=== PATIENT | female | born 1955 | race Caucasian/White ===

== ENCOUNTER → 2017-01-06 | Outpatient (CLI) | payer OTHER ==
[~2017-01-06] MED LIST: ASP81TEC PO; ESTR0.5T PO; FAMO-119 PO; HYDR-3812 PO; HYOS0.1283 SL; MTF500T PO; ONDA8TAB13 PO; TRIA1TAB2 PO
--- NOTE | 2017-01-06 16:42 | Diagnostic Imaging Report ---
INDICATION: Left foot pain. COMPARISON: None. FINDINGS: Three views of the left foot demonstrate no acute fracture or dislocation. There are no focal osseous lesions. There is no soft tissue swelling. Joint spaces are well maintained. No radiopaque foreign bodies are seen. IMPRESSION: No acute fractures or dislocations of the left foot. Dictated by: Dictated on workstation # [id number]
== END ==
LOC: RAD 16:11
PROVIDERS: ATTEND Nurse Practitioner
DX: M25.572 Pain in left ankle and joints of left foot (principal)
CPT/HCPCS: 73630

== ENCOUNTER 2017-03-04 21:20 | Emergency (ER) | payer OTHER ==
[~2017-03-04] VITALS: Ht 167.6 cm; Wt 64.4 kg
[~2017-03-04 21:20] MED LIST changes: -FAMO-119 PO; -HYDR-3812 PO; -HYOS0.1283 SL; -ONDA8TAB13 PO
[2017-03-04] MEDS ORDERED: NS IV 1000 ML 1,000 ML IV ONE (22:12)
[2017-03-04 22:13] LABS: BASOPHILS % (AUTO) 0 % (0-10); EOSINOPHILS # (AUTO) 0.1 10^3/uL (0.0-0.3); EOSINOPHILS % (AUTO) 1 % (0-10); LYMPHOCYTES # (AUTO) 0.9 X 10^3 (1.0-4.0); LYMPHOCYTES % (AUTO) 9 % (12-44); MEAN CORPUSCULAR HEMOGLOBIN 29 PG (25-34); MEAN CORPUSCULAR HGB CONC 36 G/DL (32-36); MEAN CORPUSCULAR VOLUME 80 FL (80-99); MEAN PLATELET VOLUME 10.9 FL (7.4-10.4); MONOCYTES # (AUTO) 0.7 X 10^3 (0.0-1.0); MONOCYTES % (AUTO) 7 % (0-12); NEUTROPHILS # (AUTO) 8.3 X 10^3 (1.8-7.8); NEUTROPHILS % (AUTO) 83 % (42-75); PLATELET COUNT 305 10^3/uL (130-400); RED BLOOD COUNT 4.28 10^6/uL (4.35-5.85); WHITE BLOOD COUNT 10.1 10^3/uL (4.3-11.0)
[2017-03-04] MEDS ORDERED: ONDANSETRON 4 MG/2 ML (SDV) Z0FRAN IVP ONE (22:15)
[2017-03-04] MEDS ORDERED: IOHEXOL 350 MG/ML 100 ML (OMNIPAQUE 350) VIAL IV ONE (22:15)
[2017-03-04] MEDS ORDERED: NS 100 ML (IVPB) BAG IV ONE (22:15)
--- NOTE | 2017-03-04 22:20 | ED Abdominal Pain ---
General Chief Complaint: Abdominal/GI Problems Stated Complaint: N/V;FEVER Nursing Triage Note: PT TO ED W/ C/O N/V, ABD PAIN ONSET X4 DAYS. REPORTS WAS SEEN BY AMADO POTTS W/ DR DAVIS BUT DENIES IMPROVEMENT. NO OTHER C/O VOICED Sepsis Screen: No Definite Risk Source of Information: Patient, Spouse Exam Limitations: No Limitations History of Present Illness Time Seen By Provider: 22:06 Initial Comments 62 yo female patient presents to the ED with c/o N/V and epigastric abdominal pain x4days. Patient was seen by Amado Potts APRN this week. Denies improvement in symptoms. Pain now radiates to the RUQ. fever of 101 degrees F at home. Timing/Duration: 3-4 Days, Getting Worse Severity/Quality: Aching, Stabbing Location: Epigastric Radiation: RUQ Activities at Onset: None Modifying Factors: Worsens With Eating, Worsens With Palpation Allergies and Home Medications Allergies Coded Allergies: No Known Drug Allergies (Unverified , 01/03/13) Home Medications Aspirin 81 Mg Tabec, 81 MG PO DAILY, (Reported) Estradiol 0.5 Mg Tablet, 0.625 MG PO EVERY OTHER DAY, (Reported) Metformin Hcl 500 Mg Tablet, 1 EACH PO DAILY, (Reported) Triamterene/Hctz 37.5 Mg/25 Mg Tab, 37.5 MG PO DAILY, (Reported) Review of Systems Constitutional: chills, fever EENTM: No Symptoms Reported Respiratory: Denies Cough, Denies Shortness of Air Cardiovascular: Denies Chest Pain, Denies Lightheadedness, Denies Palpitations Gastrointestinal: Denies Abdomen Distended, Abdominal Pain, Denies Blood Streaked Stools, Denies Constipated, Denies Diarrhea, Nausea, Poor Appetite, Poor Fluid Intake, Denies Rectal Bleeding, Vomiting Genitourinary: Denies Burning, Denies Frequency, Denies Flank Pain Musculoskeletal: no symptoms reported Skin: no symptoms reported Psychiatric/Neurological: No Symptoms Reported All Other Systems Reviewed Negative Unless Noted: Yes (Negative excepted noted.) Past Jtbrqso-Rgknlc-Cpqzsk Hx Patient Social History Alcohol Use: Denies Use Recreational Drug Use: No Smoking Status: Never a Smoker Recent Foreign Travel: No Contact w/Someone Who Travel: No Recent Infectious Disease Expo: No Recent Hopitalizations: No Physical Abuse: No Sexual Abuse: No Mistreated: No Fear: No Surgeries History of Surgeries: Yes Surgeries: Hysterectomy Respiratory History of Respiratory Disorde: No Cardiovascular History of Cardiac Disorders: Yes Cardiac Disorders: High Cholesterol, Hypertension Neurological History of Neurological Disord: No Genitourinary History of Genitourinary Disor: No Gastrointestinal History of Gastrointestinal Di: No Musculoskeletal History of Musculoskeletal Dis: No Endocrine History of Endocrine Disorders: Yes Psychosocial Suicide Risk Score: 0 Integumentary History of Skin or Integumenta: No Reviewed Nursing Assessment Reviewed/Agree w Nursing PMH: Yes Family Medical History Significant Family History: No Pertinent Family Hx Physical Exam Vital Signs VS - Last 72 Hours, by Label 03/04/17 21:39 Temp 97.2 Pulse 110 Resp 20 B/P (MAP) 147/90 Pulse Ox 95 O2 Delivery Room Air Capillary Refill : Less Than 3 Seconds General Appearance: WD/WN, no apparent distress HEENT: PERRL/EOMI, pharynx normal Neck: supple, normal inspection Respiratory: lungs clear, normal breath sounds, no respiratory distress, no accessory muscle use Cardiovascular: normal peripheral pulses, no edema, no murmur, tachycardia Peripheral Pulses: 2+ Dorsalis Pedis (R), 2+ Left Dors-Pedis (L), 2+ Radial Pulses (R), 2+ Radial Pulses (L) Gastrointestinal: normal bowel sounds, soft, no organomegaly, No distended, guarding (RUQ), No rebound, tenderness (epigastric and RUQ), other ((+) atkinson' s sign) Extremities: no pedal edema, normal capillary refill Back: normal inspection, no CVA tenderness Neurologic/Psychiatric: alert, normal mood/affect, oriented x 3 Skin: normal color, warm/dry Progress/Results/Core Measures Results/Orders Lab Results Laboratory Tests Test 03/04/17 21:51 03/04/17 22:11 Range/Units White Blood Count 10.1 4.3-11.0 10^3/uL Red Blood Count 4.28 L 4.35-5.85 10^6/uL Hemoglobin 12.3 11.5-16.0 G/DL Hematocrit 34 L 35-52 % Mean Corpuscular Volume 80 80-99 FL Mean Corpuscular Hemoglobin 29 25-34 PG Mean Corpuscular Hemoglobin Concent 36 32-36 G/DL Red Cell Distribution Width 13.0 10.0-14.5 % Platelet Count 305 130-400 10^3/uL Mean Platelet Volume 10.9 H 7.4-10.4 FL Neutrophils (%) (Auto) 83 H 42-75 % Lymphocytes (%) (Auto) 9 L 12-44 % Monocytes (%) (Auto) 7 0-12 % Eosinophils (%) (Auto) 1 0-10 % Basophils (%) (Auto) 0 0-10 % Neutrophils # (Auto) 8.3 H 1.8-7.8 X 10^3 Lymphocytes # (Auto) 0.9 L 1.0-4.0 X 10^3 Monocytes # (Auto) 0.7 0.0-1.0 X 10^3 Eosinophils # (Auto) 0.1 0.0-0.3 10^3/uL Basophils # (Auto) 0.0 0.0-0.1 10^3/uL Sodium Level 130 L 135-145 MMOL/L Potassium Level 3.2 L 3.6-5.0 MMOL/L Chloride Level 92 L 98-107 MMOL/L Carbon Dioxide Level 24 21-32 MMOL/L Anion Gap 14 5-14 MMOL/L Blood Urea Nitrogen 13 7-18 MG/DL Creatinine 1.04 0.60-1.30 MG/DL Estimat Glomerular Filtration Rate 54 BUN/Creatinine Ratio 13 Glucose Level 191 H 70-105 MG/DL Calcium Level 9.4 8.5-10.1 MG/DL Total Bilirubin 0.8 0.1-1.0 MG/DL Aspartate Amino Transf (AST/SGOT) 82 H 5-34 U/L Alanine Aminotransferase (ALT/SGPT) 24 0-55 U/L Alkaline Phosphatase 85 40-136 U/L Total Protein 7.2 6.4-8.2 GM/DL Albumin 4.4 3.2-4.5 GM/DL Lipase 22 8-78 U/L Urine Color YELLOW Urine Clarity SLIGHTLY CLOUDY Urine pH 6 5-9 Urine Specific [place] 1.015 L 1.016-1.022 Urine Protein 1+ H NEGATIVE Urine Glucose (UA) NEGATIVE NEGATIVE Urine Ketones NEGATIVE NEGATIVE Urine Nitrite NEGATIVE NEGATIVE Urine Bilirubin NEGATIVE NEGATIVE Urine Urobilinogen NORMAL NORMAL MG/DL Urine Leukocyte Esterase 1+ H NEGATIVE Urine RBC (Auto) 1+ H NEGATIVE Urine RBC RARE /HPF Urine WBC 0-2 /HPF Urine Crystals NONE /LPF Urine Bacteria NEGATIVE /HPF Urine Casts NONE /LPF Urine Mucus NEGATIVE /LPF Urine Culture Indicated NO My Orders Orders - GIOVANNI HAYWOOD Cbc With Automated Diff (03/04/17 22:03) Comprehensive Metabolic Panel (03/04/17 22:03) Lipase (03/04/17 22:03) Ua Culture If Indicated (03/04/17 22:03) Saline Lock/Iv-Start (03/04/17 22:03) Ct Abdomen/Pelvis W (03/04/17 22:12) Ondansetron Injection (Zofran Injectio (03/04/17 22:15) Ns Iv 1000 Ml (Sodium Chloride 0.9%) (03/04/17 22:12) Iohexol Injection (Omnipaque 350 Mg/Ml 1 (03/04/17 22:15) Ns (Ivpb) (Sodium Chloride 0.9% Ivpb Bag (03/04/17 22:15) Pharmacy Communication (Pharmacy Communi (03/04/17 22:15) Medications Given in ED Current Medications Medications Dose Ordered Sig/Eric Route Start Time Stop Time Status Last Admin Dose Admin Iohexol 100 ml ONCE ONCE IV 03/04/17 22:15 03/04/17 22:16 DC 03/04/17 22:38 75 ML Ondansetron HCl 4 mg ONCE ONCE IVP 03/04/17 22:15 03/04/17 22:16 DC 03/04/17 22:21 4 MG Sodium Chloride 100 ml ONCE ONCE IV 03/04/17 22:15 03/04/17 22:16 DC 03/04/17 22:38 80 ML Sodium Chloride 1,000 ml @ 0 mls/hr Q0M ONCE IV 03/04/17 22:12 03/04/17 22:13 DC 03/04/17 22:20 1,000 MLS/HR Vital Signs/I&O Vital Sign - Last 12Hours 03/04/17 21:39 Temp 97.2 Pulse 110 Resp 20 B/P (MAP) 147/90 Pulse Ox 95 O2 Delivery Room Air Blood Pressure Mean: 109 Diagnostic Imaging Diagonstic Imaging: CT Plain Films/CT/US/NM/MRI: abdomen, pelvis Reviewed: Other (statrad report reviewed by me) Departure Impression Impression: Primary Impression: Upper abdominal pain Additional Impressions: Nausea & vomiting incidental duodenal diverticulum Disposition: HOME, SELF-CARE Condition: Improved Departure-Patient Inst. Decision time for Depature: 00:38 Referrals: OMAIRA DAVIS MD (PCP/Family) Primary Care Physician Patient Instructions: Acute Abdomen (Belly Pain), Adult (DC), GASTROENTERITIS- 6Y-ADULT Add. Discharge Instructions: All discharge instructions reviewed with patient and/or family. Voiced understanding. Medications as instructed. Drink plenty of fluids. Avoid NSAIDs, May beverages, carbonated beverages, spicy foods, fatty foods. Clear liquid diet until symptoms improve, then increase diet slowly to a low-fat, bland diet. Follow-up with Dr. Davis's office tomorrow or Wednesday for a recheck and possible need for outpatient HIDA scan. Call tomorrow morning for appointment time. Return to the emergency department for worsened pain, fever, vomiting, vomiting blood, abdominal swelling, diarrhea, rectal bleeding, black tarry stools, inability to urinate, or any other concerns. Scripts Famotidine (Pepcid) 20 Mg Tablet 20 MG PO BID, #30 TAB 0 Refills Prov: GIOVANNI HAYWOOD 03/05/17 Hydrocodone/Acetaminophen (Hydrocodon -Acetaminophen 5-325) 1 Each Tablet 1 EACH PO Q4H Y for PAIN, #14 TAB 0 Refills Prov: GIOVANNI HAYWOOD 03/05/17 Ondansetron (Ondansetron Odt) 8 Mg Tab.rapdis 8 MG PO Q6H Y for NAUSEA/VOMITING-1ST LINE, #10 TAB 0 Refills Prov: GIOVANNI HAYWOOD 03/05/17 Hyoscyamine Sulfate (Levsin-Sl) 0.125 Mg Tab.subl 0.125 MG SL Q6H Y for SPASMS, #14 TAB 0 Refills Prov: GIOVANNI HAYWOOD 03/05/17 Work/School Note: Work Release Form Date Seen in the Emergency Department: Mar 05, 2017 Return to Work: Mar 07, 2017 GIOVANNI HAYWOOD Mar 04, 2017 22:20
[2017-03-04 22:22] LABS: BILIRUBIN,URINE NEGATIVE (NEGATIVE); KETONES,URINE NEGATIVE (NEGATIVE); LEUKOCYTE ESTERASE ,URINE 1+ (NEGATIVE); NITRITE,URINE NEGATIVE (NEGATIVE); PH,URINE 6 (5-9); PROTEIN,URINE 1+ (NEGATIVE); UROBILINOGEN,URINE NORMAL (NORMAL)
[2017-03-04 22:26] LABS: ALBUMIN 4.4 GM/DL (3.2-4.5); BILIRUBIN,TOTAL 0.8 MG/DL (0.1-1.0); CALCIUM 9.4 MG/DL (8.5-10.1); CREATININE SERUM 1.04 MG/DL (0.60-1.30); POTASSIUM 3.2 MMOL/L (3.6-5.0); TOTAL PROTEIN 7.2 GM/DL (6.4-8.2)
[2017-03-04 22:38] LABS: WBC,URINE 0-2 /HPF
[2017-03-05] MEDS ORDERED: RX-HYOSCYAMINE 0.125 MG SL (LEVSIN) PPK#6 SL STA (00:37)
[2017-03-05] MEDS ORDERED: RX-ONDANSETRON 4 MG ODT (ZOFRAN) PPK #4 PO STA (00:37)
[2017-03-05] MEDS ORDERED: FAMO-119 PO (00:43)
[2017-03-05] MEDS ORDERED: HYDR-3812 PO (00:43)
[2017-03-05] MEDS ORDERED: HYOS0.1283 SL (00:43)
[2017-03-05] MEDS ORDERED: ONDA8TAB13 PO (00:43)
[2017-03-05] MEDS ORDERED: RX-HYDROCODONE/APAP 5/325 MG #4 TAB PK PO PRN (00:45)
[2017-03-05 01:11] VITALS: BP 125/87
--- NOTE | 2017-03-05 07:10 | Diagnostic Imaging Report ---
PROCEDURE: CT abdomen and pelvis with contrast. TECHNIQUE: Multiple contiguous axial images were obtained through the abdomen and pelvis after administration of intravenous contrast. INDICATION: Epigastric pain with nausea and vomiting. COMPARISON: None available. FINDINGS: Lower chest: The lung bases are clear. No pericardial or pleural effusion. Peritoneum: No free intraperitoneal air or fluid. Liver and biliary system: Liver has diffuse hypoattenuation suggestive of hepatic steatosis. The gallbladder is normal. No biliary duct dilation. Spleen and Pancreas: Spleen is normal. The pancreas enhances normally without mass lesion or peripancreatic inflammatory changes. Adrenals: Normal. tract: The kidneys enhance normally without suspicious mass or obstruction. Urinary bladder is distended without wall thickening. Single punctate focus of air within the urinary bladder is compatible with recent catheterization. Status post hysterectomy. No adnexal mass. GI tract: Stomach is partially distended with fluid and there is no abnormal wall thickening. No bowel obstruction. No pericolonic inflammatory changes. Sigmoid colon diverticulosis without diverticulitis. Normal appendix. Vasculature and Lymph nodes: Normal caliber aorta with moderate atherosclerotic plaquing. No abdominal or pelvic lymphadenopathy. Musculoskeletal: No concerning osseous lesion. IMPRESSION: 1. No acute inflammatory obstructive process within the abdomen. 2. Underdistention of the transverse colon accounts for apparent wall thickening. 3. Findings are in general agreement with the preliminary report. Dictated by: Dictated on workstation # [id number]
== END 2017-03-05 01:11 | disposition home or self-care (01) ==
LOC: EDUNIT# 21:20 → ER 21:21
DX: K57.10 Diverticulosis of small intestine without perforation or abscess without bleeding (principal); E78.00 Pure hypercholesterolemia, unspecified; I10 Essential (primary) hypertension; Z79.82 Long term (current) use of aspirin; Z90.710 Acquired absence of both cervix and uterus
CPT/HCPCS: 36415; 74177; 80053; 81000; 83690; 85025; 96361; 96374

== ENCOUNTER → 2017-04-20 | Outpatient (CLI) | payer OTHER ==
[~2017-04-20] MED LIST changes: +FAMO-119 PO; +HYDR-3812 PO; +HYOS0.1283 SL; +ONDA8TAB13 PO
--- NOTE | 2017-04-22 16:41 | Diagnostic Imaging Report ---
Bilateral screening mammogram 2D views with tomosynthesis. The current study was also evaluated with a Computer Aided Detection (CAD) system. INDICATION: Screening. No current complaints stated on the questionnaire. COMPARISON: 03/24/2016. FINDINGS: The breasts are composed of heterogeneously dense parenchyma which may decrease mammographic sensitivity. Scattered benign-appearing calcifications are seen. Allowing for technique and positional differences, no suspicious change is seen. IMPRESSION: No significant change. ACR BI-RADS Category 2: Benign findings. Result letter will be mailed to the patient. Note: At least 10% of breast cancer is not imaged by mammography. Dictated by: Dictated on workstation # [id number]
== END ==
LOC: RAD 14:43
PROVIDERS: ATTEND Internal Medicine
DX: Z12.31 Encounter for screening mammogram for malignant neoplasm of breast (principal)
CPT/HCPCS: 77067

== ENCOUNTER 2018-01-18 06:17 | Outpatient (CLI) | payer OTHER ==
[~2018-01-18] VITALS: Ht 167.6 cm; Wt 64.4 kg
[~2018-01-18 06:17] MED LIST changes: +ACHD5005 PO; -HYDR-3812 PO
[2018-01-18] MEDS ORDERED: ROSU10TA PO (14:38)
[2018-01-18] MEDS ORDERED: TRIA1CAP4 PO (14:38)
[2018-01-18] MEDS ORDERED: ASPI-999 PO (14:38)
[2018-01-18] MEDS ORDERED: METF-397 PO (14:38)
[2018-01-18] MEDS ORDERED: COLE625T9 PO (14:38)
== END 2018-01-18 14:43 | disposition home or self-care (01) ==
LOC: PREOP 06:17
PROVIDERS: ATTEND Internal Medicine
DX: Z01.818 Encounter for other preprocedural examination (principal)

== ENCOUNTER 2018-01-21 07:14 | Day surgery (SDC) | payer OTHER ==
--- NOTE | 2018-01-20 10:06 | HISTORY AND PHYSICAL ---
DATE OF SERVICE: COLONOSCOPY HISTORY AND PHYSICAL HISTORY OF PRESENT ILLNESS: The patient is a 63-year-old white female referred by Dr. Duron for screening colonoscopy. She is deemed to be of higher than average risk as her father was diagnosed with colon cancer at the age of 57. Her last colonoscopy was 5 years ago, at which time no evidence for neoplasia was identified. On her colonoscopy, roughly 10 years ago, she did have evidence for one diminutive polyp removed from the sigmoid colon with no evidence for dysplasia. The patient reports that she feels well and there have been no changes in her health history over the past 5 years. PAST MEDICAL HISTORY: Significant for type 2 diabetes mellitus, hypertension and hyperlipidemia with no known history of vascular disease. MEDICATIONS ON ADMISSION: Include metformin 500 mg b.i.d., Maxzide 25/37.5 one daily, 81 mg aspirin daily, Welchol 625 mg tabs 3 b.i.d., and Crestor 5 mg daily. PAST SURGICAL HISTORY: Significant for tonsillectomy and hysterectomy. She had cardiac catheterization in 2007 that was reportedly unremarkable. FAMILY HISTORY: Most significant for diagnosis with colon cancer in her father at the age of 57. She is not aware of any other family history for colon cancer or polyps. PHYSICAL EXAMINATION: GENERAL: Reveals a well-appearing white female in no acute distress. VITAL SIGNS: Weight 146.2 pounds, is down 6 pounds from 5 years ago. Blood pressure 134/70 with a heart rate of 72 and regular. HEENT: Unremarkable. Sclerae nonicteric. Mallampati class 2 oropharyngeal configuration. NECK: Revealed no JVD, adenopathy or bruits. CHEST: Clear to auscultation. CARDIOVASCULAR: Reveals regular rate and rhythm without murmur, S3 or S4. ABDOMEN: Soft. Supple without mass, organomegaly or tenderness. No bruits noted. EXTREMITIES: Reveal no cyanosis, clubbing or edema. ASSESSMENT AND PLAN: The patient is set up for screening colonoscopy on 01/21/2018. Prep instructions with the Suprep kit were given and questions were answered. She is deemed to be of higher than average risk considering that her father was diagnosed with colon cancer at the age of 57. Job ID: [id number] DocumentID: [id number] Dictated Date: 01/13/2018 15:54:31 Battery Tester Date: 01/13/2018 16:24:28 Dictated By: BARBARA BRITTON MD
[~2018-01-21] VITALS: Ht 167.6 cm; Wt 64.4 kg
[~2018-01-21 07:14] MED LIST changes: +ASPI-999 PO; +COLE625T9 PO; +METF-397 PO; +ROSU10TA PO; +TRIA1CAP4 PO
--- OUTSIDE RECORDS SUMMARY | 2018-01-21 07:18 | XMS REPORT | Continuity of Care Document ---
Author Author [facility] Organization [facility] Address Unknown Phone Unavailable Allergies Active Description Code Type Severity Reaction Onset Reported/Identified Relationship to Patient Clinical Status Yes No Known Drug Allergies [id number] Drug Allergy Unknown N/A 01/03/2013 Medications There is no data. Problems Date Dx Coded Attending Type Code Diagnosis Diagnosed By 01/03/2013 REBA NOLEN, BARBARA Gomez Ot 211.1 BENIGN NEOPLASM STOMACH 01/03/2013 BARBARA BRITTON MD Ot V16.0 FAMILY HX-GI MALIGNANCY 01/03/2013 REBA NOLEN, BARBARA Gomez Ot V76.51 SCREEN MAL NEOP-COLON 03/18/2014 STEFFANY NOLEN, ROCKY Gupta Ot 250.02 DIAB EMILIA WO COMPL, TYPE II OR UNSPEC TY 03/18/2014 ROCKY JETER MD Ot 401.9 HYPERTENSION NOS 08/29/2014 ROCKY JETER MD Ot 250.00 08/29/2014 ROCKY JETER MD Ot 272.4 09/13/2014 ROCKY JETER MD Ot 793.82 09/13/2014 ROCKY JETER MD Ot V76.12 09/13/2014 ROCKY JETER MD Ot 250.00 09/13/2014 ROCKY JETER MD Ot 272.4 03/24/2016 Ot 250.00 DIAB EMILIA WO COMPL, TYPE II OR UNSPEC TY 03/24/2016 Ot 272.4 HYPERLIPIDEMIA NEC/NOS 03/24/2016 Ot 401.1 BENIGN HYPERTENSION 03/24/2016 Ot V76.12 OTH SCREEN MAMMO-MALIGN NEOPLASM OF JUANITA 03/24/2016 Ot 250.00 DIAB EMILIA WO COMPL, TYPE II OR UNSPEC TY 03/24/2016 Ot 272.4 HYPERLIPIDEMIA NEC/NOS 03/24/2016 Ot 790.6 ABN BLOOD CHEMISTRY NEC 03/24/2016 Ot V76.12 OTH SCREEN MAMMO-MALIGN NEOPLASM OF JUANITA 03/24/2016 Ot 793.80 UNSPEC ABNORMAL MAMMOGRAM 03/24/2016 Ot 790.6 ABN BLOOD CHEMISTRY NEC 03/24/2016 REBA NOLEN, BARBARA Gomez Ot V72.84 EXAM PRE-OPERATIVE NOS 03/24/2016 ROCKY JETER MD Ot V76.12 OTH SCREEN MAMMO-MALIGN NEOPLASM OF JUANITA 03/24/2016 ROCKY JETER MD Ot 250.00 DIAB EMILIA WO COMPL, TYPE II OR UNSPEC TY 03/24/2016 ROCKY JETER MD M Ot 401.1 BENIGN HYPERTENSION 03/24/2016 ROCKY JETER MD M Ot 250.00 DIAB EMILIA WO COMPL, TYPE II OR UNSPEC TY 03/24/2016 ROCKY JETER MD Ot 401.1 BENIGN HYPERTENSION 03/24/2016 Ot 250.02 DIAB EMILIA WO COMPL, TYPE II OR UNSPEC TY 03/24/2016 Ot 401.9 HYPERTENSION NOS 03/24/2016 ROCKY JETER MD Ot 793.82 INCONCLUSIVE MAMMOGRAM 03/24/2016 ROCKY JETER MD Ot V76.12 OTH SCREEN MAMMO-MALIGN NEOPLASM OF JUANITA 03/24/2016 ROCKY JETER MD Ot 250.00 DIAB EMILIA WO COMPL, TYPE II OR UNSPEC TY 03/24/2016 ROCKY JETER MD Ot 272.4 HYPERLIPIDEMIA NEC/NOS 03/25/2016 RYAN NOLEN, OMAIRA Gomez Ot Z12.31 ENCNTR SCREEN MAMMOGRAM FOR MALIGNANT NE 03/05/2017 GIOVANNI CHIRINOS Ot E78.00 PURE HYPERCHOLESTEROLEMIA, UNSPECIFIED 03/05/2017 GIOVANNI CHIRINOS Ot I10 ESSENTIAL (PRIMARY) HYPERTENSION 03/05/2017 GIOVANNI CHIRINOS Ot 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 Results Test Result Range Complete blood count (CBC) with automated white blood cell (WBC) differential - 03/04/17 21:51 Blood leukocytes automated count (number/volume) 10.1 10*3/uL 4.3-11.0 Blood erythrocytes automated count (number/volume) 4.28 10*6/uL 4.35-5.85 Venous blood hemoglobin measurement (mass/volume) 12.3 g/dL 11.5-16.0 Blood hematocrit (volume fraction) 34 % 35-52 Automated erythrocyte mean corpuscular volume 80 [foz_us] 80-99 Automated erythrocyte mean corpuscular hemoglobin (mass per erythrocyte) 29 pg 25-34 Automated erythrocyte mean corpuscular hemoglobin concentration measurement ( mass/volume) 36 g/dL 32-36 Automated erythrocyte distribution width ratio 13.0 % 10.0-14.5 Automated blood platelet count (count/volume) 305 10*3/uL 130-400 Automated blood platelet mean volume measurement 10.9 [foz_us] 7.4-10.4 Automated blood neutrophils/100 leukocytes 83 % 42-75 Automated blood lymphocytes/100 leukocytes 9 % 12-44 Blood monocytes/100 leukocytes 7 % 0-12 Automated blood eosinophils/100 leukocytes 1 % 0-10 Automated blood basophils/100 leukocytes 0 % 0-10 Blood neutrophils automated count (number/volume) 8.3 10*3 1.8-7.8 Blood lymphocytes automated count (number/volume) 0.9 10*3 1.0-4.0 Blood monocytes automated count (number/volume) 0.7 10*3 0.0-1.0 Automated eosinophil count 0.1 10*3/uL 0.0-0.3 Automated blood basophil count (count/volume) 0.0 10*3/uL 0.0-0.1 Comprehensive metabolic panel - 03/04/17 21:51 Serum or plasma sodium measurement (moles/volume) 130 mmol/L 135-145 Serum or plasma potassium measurement (moles/volume) 3.2 mmol/L 3.6-5.0 Serum or plasma chloride measurement (moles/volume) 92 mmol/L 98-107 Carbon dioxide 24 mmol/L 21-32 Serum or plasma anion gap determination (moles/volume) 14 mmol/L 5-14 Serum or plasma urea nitrogen measurement (mass/volume) 13 mg/dL 7-18 Serum or plasma creatinine measurement (mass/volume) 1.04 mg/dL 0.60-1.30 Serum or plasma urea nitrogen/creatinine mass ratio 13 NRG Serum or plasma creatinine measurement with calculation of estimated glomerular filtration rate 54 NRG Serum or plasma glucose measurement (mass/volume) 191 mg/dL 70-105 Serum or plasma calcium measurement (mass/volume) 9.4 mg/dL 8.5-10.1 Serum or plasma total bilirubin measurement (mass/volume) 0.8 mg/dL 0.1-1.0 Serum or plasma alkaline phosphatase measurement (enzymatic activity/volume) 85 U/L 40-136 Serum or plasma aspartate aminotransferase measurement (enzymatic activity/ volume) 82 U/L 5-34 Serum or plasma alanine aminotransferase measurement (enzymatic activity/volume ) 24 U/L 0-55 Serum or plasma protein measurement (mass/volume) 7.2 g/dL 6.4-8.2 Serum or plasma albumin measurement (mass/volume) 4.4 g/dL 3.2-4.5 Lipase - 03/04/17 21:51 Lipase 22 U/L 8-78 Complete urinalysis with reflex to culture - 03/04/17 22:11 Urine color determination YELLOW NRG Urine clarity determination SLIGHTLY CLOUDY NRG Urine pH measurement by test strip 6 5-9 Specific gravity of urine by test strip 1.015 1.016- 1.022 Urine protein assay by test strip, semi-quantitative 1+ NEGATIVE Urine glucose detection by automated test strip NEGATIVE NEGATIVE Erythrocytes detection in urine sediment by light microscopy 1+ NEGATIVE Urine ketones detection by automated test strip NEGATIVE NEGATIVE Urine nitrite detection by test strip NEGATIVE NEGATIVE Urine total bilirubin detection by test strip NEGATIVE NEGATIVE Urine urobilinogen measurement by automated test strip (mass/volume) NORMAL NORMAL Urine leukocyte esterase detection by dipstick 1+ NEGATIVE Automated urine sediment erythrocyte count by microscopy (number/high power field) RARE NRG Automated urine sediment leukocyte count by microscopy (number/high power field ) [HPF] NRG Bacteria detection in urine sediment by light microscopy NEGATIVE NRG Crystals detection in urine sediment by light microscopy NONE NRG Casts detection in urine sediment by light microscopy NONE NRG Mucus detection in urine sediment by light microscopy NEGATIVE NRG Complete urinalysis with reflex to culture NO NRG Encounters ACCT No. Visit Date/Time Discharge Status Pt. Type Provider Facility Loc./Unit Complaint [id number] 04/20/2017 14:43:00 04/20/2017 23:59:59 CLS Outpatient OMAIRA DAVIS MD [facility] RAD SCREENING [id number] 03/04/2017 21:21:00 03/05/2017 01:11:00 DIS Emergency GIOVANNI CHIRINOS [facility] ER N/V;FEVER [id number] 01/06/2017 16:11:00 01/06/2017 23:59:59 CLS Outpatient IRENA POTTS APRN [facility] RAD LT FOOT PAIN [id number] 03/24/2016 12:47:00 03/24/2016 23:59:59 CLS Outpatient OMAIRA DAVIS MD [facility] RAD SCREENING [id number] 08/25/2014 07:02:00 08/25/2014 23:59:59 CLS Outpatient ROCKY JETER MD [facility] LAB HYPERLIPIDEMIA, DIABETES [id number] 08/23/2014 12:48:00 08/23/2014 23:59:59 CLS Outpatient ROCKY JETER MD [facility] RAD SCREENING [id number] 02/19/2014 18:00:00 03/18/2014 00:01:00 DIS Outpatient ROCKY JETER MD [facility] DSME TYPE II DIABETES [id number] 11/24/2013 06:47:00 11/24/2013 23:59:59 CLS Outpatient ROCKY JETER MD [facility] LAB DM,HTN [id number] 07/25/2013 07:21:00 07/25/2013 23:59:59 CLS Outpatient ROCKY JETER MD [facility] LAB DIABETES [id number] 05/04/2013 09:34:00 05/04/2013 23:59:59 CLS Outpatient ROCKY JETER MD [facility] RAD SCREENING [id number] 01/03/2013 06:59:00 01/03/2013 10:00:00 DIS Outpatient BARBARA BRITTON MD [facility] SDC FAMILY HX COLON CA/ SCREENING [id number] 12/29/2012 07:16:00 12/29/2012 23:59:59 CLS Outpatient BARBARA BRITTON MD [facility] PREOP SCREENING/FAMILY HISTORY [id number] 10/24/2012 07:41:00 10/24/2012 23:59:59 CLS Outpatient [id number] 01/21/2018 07:14:00 ACT Outpatient BARBARA BRITTON MD [facility] ENDO SCREENING/F/H COLON CANCER [id number] 01/18/2018 06:17:00 Document Registration [id number] 03/19/2014 13:00:00 Document Registration [id number] 06/06/2012 10:57:00 Document Registration [id number] 05/05/2012 15:04:00 Document Registration [id number] 04/29/2012 07:44:00 Document Registration [id number] 01/18/2012 10:30:00 Document Registration [id number] 01/15/2012 07:59:00 Document Registration [id number] 04/14/2011 07:33:00 Document Registration [id number] 01/15/2011 08:05:00 Document Registration
[2018-01-21] MEDS ORDERED: D5 LR IV SOLUTION 1,000 ML IV ONE (07:21)
[2018-01-21] MEDS ORDERED: MIDAZOLAM 2 MG/2 ML (VERSED) VIAL IVP ONE (08:00)
[2018-01-21] MEDS ORDERED: LIDOCAINE JELLY 2% (XYLOCAINE) 5 ML TUBE MM PRN (08:00)
[2018-01-21] MEDS ORDERED: D5 LR IV SOLUTION 1,000 ML IV STA (08:00)
[2018-01-21] MEDS ORDERED: fentaNYL INJECTION 100 MCG/2 ML AMP IVP ONE (08:00)
[2018-01-21 08:03] VITALS: BP 134/94
--- NOTE | 2018-01-21 08:43 | Pre-Op Note & Conscious Sedat ---
Pre-Operative Progress Note H&P Reviewed The H&P was reviewed, patient examined and no changes noted. Date H&P Reviewed: Jan 21, 2018 Time H&P Reviewed: 08:43 Conscious Sedation Pre-Proced ASA Class: 2 Airway Mallampati Classification: ([employer] appropriate class) I. II. III, IV Lungs Heart ASA score ASA 1: a normal healthy patient ASA 2: a patient with a mild systemic disease (mid diabetes, controlled hypertension, obesity ASA 3: a patient with a severe systemic disease that limits activity (angina , COPD, prior Myocardial infarction) ASA 4: a patient with an incapacitating disease that is a constant threat to life (CHF, renal failure) ASA 5: a moribund patient not expected to survive 24 hrs. (ruptured aneurysm) ASA 6: a declared brain patient whose organs are being harvested. For emergent operations, add the letter E after the classification Grade 2 Sedation Plan: Analgesia, Amnesia, Plan communicated to team members, Discussed options with patient/fam, Discussed risks with patient/fam Note The patient is an appropriate candidate to undergo the planned procedure, sedation, and anesthesia. The patient immediately re-assessed prior to indication. BARBARA BRITTON MD Jan 21, 2018 08:43
[2018-01-21] MEDS ORDERED: MIDAZOLAM 2 MG/2 ML (VERSED) VIAL ONE ×2 (08:53)
[2018-01-21] MEDS ORDERED: fentaNYL INJECTION 100 MCG/2 ML AMP ONE ×2 (08:53→09:06)
[2018-01-21] MEDS ORDERED: LIDOCAINE JELLY 2% (XYLOCAINE) 5 ML TUBE ONE (08:53)
[2018-01-21 09:45] VITALS: BP 127/79
[2018-01-21 10:15] VITALS: BP 136/94
[2018-01-21 13:05] VITALS: BP 136/94
--- NOTE | 2018-01-21 14:22 | OPERATIVE REPORT ---
DATE OF SERVICE: INDICATION FOR THE PROCEDURE: Screening colonoscopy. DESCRIPTION OF PROCEDURE: The patient was placed in the left lateral decubitus position. Prior to undergoing colonoscopy, digital rectal evaluation was performed. Anal sphincter tone was normal and the perianal reflexes intact. No abnormalities were noted on digital inspection of the anal canal or distal rectal vault. The colonoscope was then inserted into the rectum under direct visualization and advanced to the cecum. The cecum was identified by identification of ileocecal valve, cecal strap and appendiceal orifice. Photographic documentation was obtained. Careful inspection was made as the colonoscope was withdrawn. Quality of the prep was good. FINDINGS: There was no evidence for internal or external hemorrhoids and the rectum was unremarkable. There is an area of colonic narrowing without any evidence for stricture formation or mucosal abnormality in the mid distal sigmoid colon roughly 25 to 35 cm compatible with likely tethering from extrinsic adhesions. There is no evidence for obstruction, but despite going back and forth several times in different positions, I was unable to open up the colon to get a good view. There is no evidence for blood and nothing to suggest underlying malignancy or any neoplastic or inflammatory process and no surrounding diverticulum, although again visualization was suboptimal. The remainder of the sigmoid colon was unremarkable. Present on the splenic flexure was a diminutive hyperplastic appearing polyp, measuring about 3 mm in size. It was biopsied and ablated and submitted for histopathology after photographic documentation. Present in the mid transverse colon was a sessile 4 mm inflammatory appearing polyp. It was photographed and biopsied and ablated with no subsequent blood loss. The remainder of the transverse colon, hepatic flexure, ascending colon and cecum were unremarkable. ASSESSMENT: Two diminutive polyps were removed today, neither of which may return clerk to be neoplastic in nature, but we will need to await histopathology reporting. The patient does have about a 10 cm area of sigmoid colon roughly 25 to 35 cm from the anal verge that is difficult to visualize likely due to extrinsic adhesions, see above report. For this reason as long as there are no surprises on histopathology report, we will likely be advocating a shorter 2 to 3 year surveillance interval considering family history for relatively early colon cancer in a first degree relative, her father, in his 50s. We will also recommend Diprivan based anesthesia for her next procedure. I thank you for the referral of this pleasant lady. Job ID: [id number] DocumentID: [id number] Dictated Date: 01/21/2018 10:01:47 Steel Rod Buster Date: 01/21/2018 14:21:57 Dictated By: BARBARA BRITTON MD
== END 2018-01-21 10:20 | disposition home or self-care (01) ==
LOC: ENDO 07:14
PROVIDERS: ATTEND Internal Medicine
DX: Z12.11 Encounter for screening for malignant neoplasm of colon (principal); D12.3 Benign neoplasm of transverse colon; K63.5 Polyp of colon; K66.0 Peritoneal adhesions (postprocedural) (postinfection); Z80.0 Family history of malignant neoplasm of digestive organs; E11.9 Type 2 diabetes mellitus without complications; I10 Essential (primary) hypertension; Z79.82 Long term (current) use of aspirin; Z79.84 Long term (current) use of oral hypoglycemic drugs; Z87.19 Personal history of other diseases of the digestive system

== ENCOUNTER → 2018-05-09 | Outpatient (CLI) | payer OTHER ==
--- NOTE | 2018-05-11 10:22 | Diagnostic Imaging Report ---
Digital mammogram. Bilateral screening with 3-D tomosynthesis with CAD. The study was compared to the prior exam of 04/20/2017, 03/24/2016 and 08/23/2014. At this time there are no current complaints. FINDINGS: The fibroglandular tissue in both breasts is heterogeneously dense. This does limit the sensitivity of this exam. Overall, there does not appear to have been any significant change when compared to the prior study. No primary or secondary sign of malignancy is noted. IMPRESSION: There is no radiographic evidence for malignancy. ACR BI-RADS Category 1: Negative. Result letter will be mailed to the patient. Note: At least 10% of breast cancer is not imaged by mammography. Dictated by: Dictated on workstation # [id number]
== END ==
LOC: RAD 11:22
PROVIDERS: ATTEND Internal Medicine
DX: Z12.31 Encounter for screening mammogram for malignant neoplasm of breast (principal)
CPT/HCPCS: 77067

== ENCOUNTER → 2019-07-07 | Outpatient (CLI) | payer BC, OTHER ==
[~2019-07-07] MED LIST changes: -ROSU10TA PO; +ROSU10TA22 PO
--- NOTE | 2019-07-10 10:19 | Diagnostic Imaging Report ---
EXAMINATION: Digital mammogram bilateral screening. INDICATION: Screening. COMPARISON: This study is compared to the prior exams of 05/09/2018, 04/20/2017, and 03/24/2016. PERSONAL HISTORY: At this time, there are no current complaints. TECHNIQUE: Screening digital mammography was performed bilaterally with a Computer Aided Detection (CAD) system. FINDINGS: The fibroglandular tissue in both breasts is heterogeneously dense. This does limit the sensitivity of this exam. Overall, there does not appear to have been any significant change when compared to the prior study. No primary or secondary sign of malignancy is noted. IMPRESSION: There is no radiographic evidence for malignancy. ACR BI-RADS Category 1: Negative. Result letter will be mailed to the patient. Note: At least 10% of breast cancer is not imaged by mammography. Dictated by: Dictated on workstation # [id number]
== END ==
LOC: RAD 14:27
PROVIDERS: ATTEND Internal Medicine
DX: Z12.31 Encounter for screening mammogram for malignant neoplasm of breast (principal)
CPT/HCPCS: 77067

== ENCOUNTER → 2020-09-26 | Outpatient (CLI) | payer OTHER | END | disposition home or self-care (01) | LOC: PREOP 07:23 | PROVIDERS: ATTEND Internal Medicine | DX: Z01.818 Encounter for other preprocedural examination (principal) ==

== ENCOUNTER 2020-10-04 08:57 | Day surgery (SDC) | payer OTHER ==
[~2020-10-04] VITALS: Ht 167.7 cm; Wt 67.3 kg
[~2020-10-04 08:57] MED LIST changes: +LACTATED RINGERS 1,000 ML IV ONE
[2020-10-04] MEDS ORDERED: LACTATED RINGERS 1,000 ML IV STA (09:00)
[2020-10-04] MEDS ORDERED: LIDOCAINE JELLY 2% 6 ML SYRINGE MM PRN (09:00)
--- NOTE | 2020-10-04 09:08 | Pre-Op Note & Conscious Sedat ---
Pre-Operative Progress Note H&P Reviewed The H&P was reviewed, patient examined and no changes noted. Date H&P Reviewed: October 04, 2020 Time H&P Reviewed: 09:08 Conscious Sedation Pre-Proced ASA Score 2 For ASA 3 and 4: Consider anesthesia and medical clearance. Also, for patients with a history of failed moderate sedation consider anesthesia. Airway Lungs Heart ASA score ASA 1: a normal healthy patient ASA 2: a patient with a mild systemic disease (mid diabetes, controlled hypertension, obesity ASA 3: a patient with a severe systemic disease that limits activity (angina, COPD, prior Myocardial infarction) ASA 4: a patient with an incapacitating disease that is a constant threat to life (CHF, renal failure) ASA 5: a moribund patient not expected to survive 24 hrs. (ruptured aneurysm) ASA 6: a declared brain- patient whose organs are being harvested. For emergent operations, add the letter E after the classification Mallampati Classification Grade 2 Sedation Plan Analgesia, Amnesia, Plan communicated to team members, Discussed options with patient/fam, Discussed risks with patient/fam The patient is an appropriate candidate to undergo the planned procedure, sedation, and anesthesia. The patient immediately re-assessed prior to indication. BARBARA BRITTON MD October 04, 2020 09:08
[2020-10-04 09:18] VITALS: BP 162/94
[2020-10-04] MEDS ORDERED: LIDOCAINE JELLY 2% 6 ML SYRINGE ONE (09:50)
[2020-10-04] MEDS ORDERED: PROPOFOL INJECTION 50 ML IV ONE (09:55)
[2020-10-04 10:35] VITALS: BP 93/53
[2020-10-04 10:40] VITALS: BP 114/59
[2020-10-04 11:00] VITALS: BP 133/88
[2020-10-04 11:20] VITALS: BP 133/88
--- NOTE | 2020-10-04 14:35 | Anesthesia-General Post-Op ---
MAC Patient Condition Mental Status/LOC: Same as Preop Cardiovascular: Satisfactory Nausea/Vomiting: Absent Respiratory: Satisfactory Pain: Controlled Complications: Absent Post Op Complications Complications None Follow Up Care/Instructions Patient Instructions None needed. Anesthesiology Discharge Order Discharge Order Patient is doing well, no complaints, stable vital signs, no apparent adverse anesthesia problems. No complications reported per nursing. TANIKA SMITH CRNA October 04, 2020 14:35
--- NOTE | 2020-10-04 16:36 | OPERATIVE REPORT ---
DATE OF SERVICE: COLONOSCOPY SUMMARY INDICATION FOR THE PROCEDURE: Surveillance colonoscopy due to the past history of colon polyps and a family history of colon cancer. DESCRIPTION OF PROCEDURE: The patient was placed in the left lateral decubitus position. Prior to undergoing colonoscopy, a digital rectal evaluation was performed. Anal sphincter tone was normal and the perianal reflexes intact. No abnormalities were noted on digital inspection of the anal canal or distal rectal vault. The colonoscope was then inserted into the rectum and under direct visualization advanced to the cecum. The cecum was identified by identification of the ileocecal valve and the cecal strap. Quality of prep was good. FINDINGS: There was no evidence for internal or external hemorrhoids. The rectum was unremarkable. Present at the rectosigmoid junction was a diminutive hyperplastic-appearing polyp, it was photographed and biopsied and ablated with no subsequent blood loss. The sigmoid colon, descending colon, splenic flexure, transverse colon, hepatic flexure, ascending colon and cecum were unremarkable with no evidence for any recurrence of previous removed polyps. ASSESSMENT: One diminutive hyperplastic appearing rectosigmoid junction polyp was removed with an otherwise normal colonoscopy to the cecum under good prep conditions. I would advocate repeat surveillance colonoscopy in five years. I thank you for the referral of this pleasant lady. Job ID: [id number] DocumentID: [id number] Dictated Date: 10/04/2020 12:17:33 Public Health Professor Date: 10/04/2020 16:35:23 Dictated By: BARBARA BRITTON MD
--- NOTE | 2020-10-10 11:17 | HISTORY AND PHYSICAL ---
DATE OF SERVICE: COLONOSCOPY HISTORY AND PHYSICAL HISTORY OF PRESENT ILLNESS: The patient is a 65-year-old white female referred for surveillance colonoscopy due to past history of colon polyps and a family history of colon cancer. The index case is her father diagnosed in his 50s. The patient last underwent colonoscopy three years ago, at which time she had one adenoma removed from the splenic flexure and a hyperplastic polyp removed from the mid transverse colon. She denies bowel habit changes, noted no blood in the stool either bright red or melena. There have been no changes in weight since she reports no significant change in health history or medication. PAST MEDICAL HISTORY: Significant for hyperlipidemia, hypertension and type 2 diabetes with no known history of coronary artery disease, normal cardiac catheterization in 2007. PAST SURGICAL HISTORY: She had tonsillectomy and adenoidectomy as a child. Reporting no other surgeries. FAMILY HISTORY: Her father was diagnosed with colon cancer at the age of 57. She is not aware of any other family history of colon cancer or polyps. 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 REVIEW OF SYSTEMS: CONSTITUTIONAL: She denies night sweats, chills, fever or change in weight. GASTROINTESTINAL: As noted in the HPI. CARDIOVASCULAR: She denies orthopnea, PND, pedal edema, chest pain or dyspnea on exertion. PULMONARY: She denies cough, wheezing or shortness of breath. PHYSICAL EXAMINATION: GENERAL: Reveals a well-appearing white female in no acute distress. VITAL SIGNS: Weight 150 pounds, blood pressure 120/80. HEENT: Unremarkable. CHEST: Clear to auscultation. CARDIOVASCULAR: Reveals a regular rate and rhythm without murmur, S3 or S4. ABDOMEN: Soft, supple without mass, organomegaly or tenderness. EXTREMITIES: Reveal no cyanosis, clubbing or edema. ASSESSMENT AND PLAN: The patient is set up for surveillance colonoscopy on 10/11/2020. Prep instructions with the Suprep kit were given and questions were answered. Electronic medical record was reviewed. I thank you for the referral of this pleasant lady. Job ID: [id number] DocumentID: [id number] Dictated Date: 09/16/2020 15:53:04 Supervisor Remelt Date: 09/16/2020 16:27:35 Dictated By: BARBARA BRITTON MD <Dictated by BARBARA BRITTON MD> <Electronically signed by BARBARA BRITTON MD> 10/02/20 [id number] MTDD
== END 2020-10-04 11:25 ==
LOC: ENDO 08:57
PROVIDERS: ATTEND Internal Medicine
DX: Z12.11 Encounter for screening for malignant neoplasm of colon (principal); K63.5 Polyp of colon; I10 Essential (primary) hypertension; E11.9 Type 2 diabetes mellitus without complications; E78.5 Hyperlipidemia, unspecified; Z79.84 Long term (current) use of oral hypoglycemic drugs; Z79.899 Other long term (current) drug therapy; Z80.0 Family history of malignant neoplasm of digestive organs
CPT/HCPCS: 88305

== ENCOUNTER → 2020-12-25 | Outpatient (CLI) | payer MEDICARE, OTHER ==
[~2020-12-25] MED LIST changes: -LACTATED RINGERS 1,000 ML IV ONE
--- NOTE | 2020-12-25 09:35 | Diagnostic Imaging Report ---
Indication: Routine screening. Comparison is made with prior mammogram from 07/07/2019 and 05/09/2018. 2-D and 3-D bilateral screening mammography was performed with CAD. Both breasts are heterogeneously dense, limiting the sensitivity of mammography. The overall parenchymal pattern appears to be stable. There are scattered benign calcifications. No mass or malignant-appearing microcalcifications are seen. Axillae are unremarkable. IMPRESSION: BI-RADS Category 2 No mammographic features suspicious for malignancy are identified. ACR BI-RADS Category 2: Benign findings. Result letter will be mailed to the patient. Note: At least 10% of breast cancer is not imaged by mammography. Dictated by: Dictated on workstation # [id number]
== END ==
LOC: RAD 08:00
PROVIDERS: ATTEND Internal Medicine
DX: Z12.31 Encounter for screening mammogram for malignant neoplasm of breast (principal)
CPT/HCPCS: 77063; 77067

== ENCOUNTER → 2021-02-13 | Outpatient (CLI) | payer MEDICARE, OTHER ==
--- NOTE | 2021-02-13 10:02 | Diagnostic Imaging Report ---
PROCEDURE: US Hepatic (Liver). INDICATION: ELEVATED LIVER ENZYMES TECHNIQUE: Multiple grayscale sonographic images were obtained of the right upper quadrant of the abdomen. CORRELATION STUDY: None FINDINGS: LIVER: There is diffusely increased echotexture within the visualized portions of the liver. The main portal vein is patent and with normal direction of flow. Liver length 18 cm. GALLBLADDER: Proximally 2 cm shadowing gallstone. No significant gallbladder wall thickening or pericholecystic fluid COMMON BILE DUCT: Nondilated at 0.3 cm. AORTA/IVC: Not well visualized. PANCREAS: Visualized portions appearing unremarkable. RIGHT KIDNEY: 10.6 x 5.3 x 6.6 cm. No hydronephrosis. OTHER: None. IMPRESSION: 1. Fatty infiltration with upper limits sized liver. 2. Cholelithiasis with a 2 cm gallstone. Dictated by: Dictated on workstation # [id number]
== END ==
LOC: RAD 08:46
PROVIDERS: ATTEND Internal Medicine
DX: K80.20 Calculus of gallbladder without cholecystitis without obstruction (principal); K76.0 Fatty (change of) liver, not elsewhere classified
CPT/HCPCS: 76705

== ENCOUNTER → 2021-04-22 | Outpatient (CLI) | payer MEDICARE, OTHER | LOC: LABNPT 08:46 | PROVIDERS: ATTEND Internal Medicine | DX: U07.1 COVID-19 (principal) | CPT/HCPCS: 87636 ==

== ENCOUNTER → 2022-01-06 | Outpatient (CLI) | payer MEDICARE, OTHER ==
[~2022-01-06] MED LIST changes: +NF-CRES10T PO; -ROSU10TA22 PO; -TRIA1CAP4 PO; +TRIA1CAP84 PO
--- NOTE | 2022-01-06 13:13 | Diagnostic Imaging Report ---
INDICATION: Routine screening. Comparison is made with prior mammogram 12/25/2020 and 06/29/2019. 2-D and 3-D bilateral screening mammography was performed with CAD. Both breasts are heterogeneously dense, limiting the sensitivity of mammography. There are scattered benign calcifications. No mass or malignant-appearing microcalcifications are seen. Axillae are unremarkable. IMPRESSION: No mammographic features suspicious for malignancy are identified. ACR BI-RADS Category 2: Benign findings. Result letter will be mailed to the patient. Note: At least 10% of breast cancer is not imaged by mammography. BI-RADS Category 2 Dictated by: Dictated on workstation # [id number]
== END ==
LOC: RAD 09:00
PROVIDERS: ATTEND Nurse Practitioner Family
DX: Z12.31 Encounter for screening mammogram for malignant neoplasm of breast (principal)
CPT/HCPCS: 77063; 77067

== ENCOUNTER → 2023-01-07 | Outpatient (CLI) | payer MEDICARE ==
[~2023-01-07] MED LIST changes: +COLE625T30 PO; -COLE625T9 PO
--- NOTE | 2023-01-07 11:52 | Diagnostic Imaging Report ---
INDICATION: Routine screening. COMPARISON: 01/06/2022 and 12/25/2020. TECHNIQUE: 2D and 3D bilateral screening mammography was performed with CAD. FINDINGS: Both breasts are heterogeneously dense, limiting the sensitivity of mammography. The parenchymal pattern is stable. There are benign calcifications present. No mass or malignant-appearing microcalcifications are seen. The axillae are unremarkable. IMPRESSION: No mammographic features suspicious for malignancy are identified. ACR BI-RADS Category 2: Benign findings. Result letter will be mailed to the patient. Note: At least 10% of breast cancer is not imaged by mammography. Dictated by: Dictated on workstation # [id number]
== END ==
LOC: RAD 10:02
PROVIDERS: ATTEND Family Medicine
DX: Z12.31 Encounter for screening mammogram for malignant neoplasm of breast (principal)
CPT/HCPCS: 77063; 77067